=== PATIENT | female | born 1995 | race Caucasian/White ===

== ENCOUNTER → 2018-08-22 | Outpatient (CLI) | payer BC, OTHER ==
--- NOTE | 2018-08-23 08:11 | US ---
EXAM DESCRIPTION: OB ,Late (15-40wks): Ultrasound. CLINICAL HISTORY: 23 years Female Gestational size and dates correlation. Routine care. unknown. . By LMP 04/03/2018 , EGA today is 20 weeks, 1 days, with VANNESA of 01/08/2019. COMPARISON: Previous OB ultrasound none available. . TECHNIQUE: Trans-pelvic scanning through the urine-filled bladder; purcell-scale, color Doppler, and M-mode sonography FINDINGS: Single, intrauterine gestation, cephalic position. Amniotic fluid volume normal. IESHA : 15.4 cm.. Maternal cervix internal os visualized.. Placenta anterior with no evidence of previa or abruptio. heart rate by M-mode sonography 138 beats/min. limb activity observed. structural survey: The following structures were visualized and grossly normal - urinary bladder, stomach, and bilateral kidneys; cord insertion, 3-vessel cord and 4 extremities; spine longitudinal, 4-chamber heart; bilateral choroid plexus, lateral ventricles, cerebellum, and cisterna magna. Nose/lips were not seen bilateral ventricular outflow tracts and diaphragm were not seen. Ultrasound parameter measurements for estimating gestational age: BPD 50.5 mm 21/2 (weeks/days). Head circumference 184.7 mm 20/6. Abdominal circumference 154.9 mm 20/5. Femur length 33.8 mm 20/4. Ultrasound parameter ratios and cephalic index are within the normal range. Mean estimated gestational age is 20 weeks 6 days, corresponding to VANNESA of 01/03/2019. Estimated weight based on these measurements is 370+/- 56 g. 13 ounces 76th percentile LMP. Bilateral adnexa not well seen; ovaries not seen. IMPRESSION: 1. Single, living, intrauterine gestation in cephalic presentation. Amniotic fluid volume normal, and maternal cervix internal os was visualized. Placenta anterior with no evidence of previa. Structural survey grossly normal . cardiac ventricular outflow tracts nose and lips, and diaphragm were not seen. 2. Estimated gestational age by today's ultrasound examination is 20 weeks 6 days with VANNESA 01/03/2019. This is 5 days older than the estimated gestation age by menstrual dates. 3. Estimated weight is 370 g. 13 ounces. 75th Percentile LMP . Electronically signed by: Chirs Gregg MD 08/23/2018 8:08 AM CDT
== END ==
LOC: US 09:34
PROVIDERS: ATTEND Family Medicine
DX: Z34.81 Encounter for supervision of other normal pregnancy, first trimester (principal); Z3A.20 20 weeks gestation of pregnancy

== ENCOUNTER 2020-05-23 16:29 | Emergency (ER) | payer BC ==
--- NOTE | 2020-05-23 16:39 | ED.PDOC ---
History of Present Illness - General Stated Complaint: Vomiting in Time Seen by Provider: 05/23/20 16:39 - History of Present Illness Initial Comments: A0, EGA 7 weeks. Patient complains of incessant vomiting for the last 3 days, too numerous to count in the last 24 hours. No diarrhea. No vaginal bleeding. No fever chills, upper respiratory symptoms or coughing. Patient has had hyperemesis gravidarum with her 2 prior pregnancies. No dysuria or frequency, decreased urine output. Timing/Duration: other - 3 days Severity: severe Improving Factors: nothing Worsening Factors: nothing Associated Symptoms: denies symptoms Allergies/Adverse Reactions: Allergies NO KNOWN ALLERGY Allergy (Verified 08/13/15 18:52) Home Medications: Ambulatory Orders Doxylamine Succinate (Sleep) [Unisom] 25 mg PO PRN 08/13/15 Ondansetron [Zofran Odt] 4 mg PO Q6HR PRN #10 tab 08/13/15 Nitrofurantoin Monohydrate Mac [Macrobid] 100 mg PO BID #14 cap 09/18/15 Ondansetron Tab [Zofran Tab] 4 mg PO BID PRN #8 tab 09/18/15 Ondansetron Odt [Zofran ODT] 4 mg PO Q6H PRN 5 Days #20 tab 05/23/20 Review of Systems - Review of Systems Constitutional: States: no symptoms reported EENTM: States: no symptoms reported Respiratory: States: no symptoms reported Cardiology: States: no symptoms reported Gastrointestinal/Abdominal: States: see HPI Genitourinary: States: see HPI Musculoskeletal: States: no symptoms reported Skin: States: no symptoms reported Neurological: States: no symptoms reported Endocrine: States: no symptoms reported Hematologic/Lymphatic: States: no symptoms reported Past Medical History (General) - Patient Medical History Hx Seizures: No Hx Stroke: No Hx Dementia: No Hx Asthma: No Hx of COPD: No Hx Cardiac Disorders: No Hx Congestive Heart Failure: No Hx Pacemaker: No Hx Hypertension: No Hx Thyroid Disease: No Hx Diabetes: No Hx Gastroesophageal Reflux: No Hx Renal Disease: No Hx Cancer: No Hx of HIV: No Hx Hepatitis C: No Hx MRSA: No - Vaccination History Hx Tetanus, Diphtheria Vaccination: No Hx Influenza Vaccination: No Hx Pneumococcal Vaccination: No - Social History Hx Tobacco Use: No Hx Chewing Tobacco Use: No Hx Alcohol Use: No Hx Substance Use: No Hx Substance Use Treatment: No Hx Depression: No Hx Physical Abuse: No Hx Emotional Abuse: No Hx Suspected Abuse: No - Female History Patient : Yes Expected Date of Delivery:: 03/26/16 Hx Gestational Age: 8 Family Medical History - Family History Mother Family History: No Known Physical Exam - Physical Exam General Appearance: Alert, Other - Vomiting Eye Exam: bilateral normal Ears, Nose, Throat: normal ENT inspection, normal pharynx, other - Moist mucous membranes Neck: non-tender, full range of motion, supple Respiratory: lungs clear Cardiovascular/Chest: normal peripheral pulses, regular rate, rhythm Gastrointestinal/Abdominal: normal bowel sounds, non tender, soft Back Exam: normal inspection, no CVA tenderness Extremity: non-tender, no pedal edema, no calf tenderness Neurologic: ground support agent II-XII nml as tested, no motor/sensory deficits, normal mood/affect, oriented x 3 Skin Exam: normal color Lymphatic: no adenopathy Progress - Progress Progress: 05/23/20 16:47 IV normal saline 1000 mL with 25 mg Phenergan added, Zofran 4 mg IV. 05/23/20 17:58 Now tolerating oral fluids well. Nausea has subsided. Patient amenable to discharge. - Results/Orders Results/Orders: 05/23/20 16:42 URINALYSIS Stat Laboratory Results - last 24 hr 05/23/20 05/23/20 16:42 16:42 WBC 10.2 RBC 4.90 Hgb 14.5 Hct 41.2 MCV 84.0 MCH 29.5 MCHC 35.1 RDW 12.4 Plt Count 260 MPV 7.3 L Absolute Neuts (auto) 7.60 H Absolute Lymphs (auto) 2.00 Absolute Monos (auto) 0.60 Absolute Eos (auto) 0.00 Absolute Basos (auto) 0.10 Neutrophils % 74.4 Lymphocytes % 19.3 L Monocytes % 5.6 Eosinophils % 0.1 L Basophils % 0.6 Sodium 138 Potassium 3.9 Chloride 105 Carbon Dioxide 20 L Anion Gap 16.9 BUN 9 Creatinine 0.66 BUN/Creatinine Ratio 13.6 Random Glucose 92 Serum Osmolality 274.0 L Calcium 9.3 Total Bilirubin 1.0 AST 19 ALT 15 Alkaline Phosphatase 45 Serum Total Protein 8.6 H Albumin 4.8 Globulin 3.8 H Albumin/Globulin Ratio 1.3 Vital Signs - 24 hr 05/23/20 16:40 Temperature 97.9 F Pulse Rate [ 88 left brachial] Respiratory 16 Rate Blood Pressure 131/89 [left brachial] O2 Sat by Pulse 100 Oximetry Departure - Departure Clinical Impression: Vomiting during Time of Disposition: 17:58 Disposition: Discharge to Home or Self Care Condition: Good Instructions: Nausea and Vomiting, Adult (DC) Diet: other - Clear liquid diet initially, gradually advancing her diet as tolerated. Activity: other Referrals: Vicky Rios DO [Primary Care Provider] - 1-2 Weeks Prescriptions: Ondansetron Odt [Zofran ODT] 4 mg PO Q6H PRN 5 Days #20 tab PRN Reason: Vomiting Home Medications: Ambulatory Orders Doxylamine Succinate (Sleep) [Unisom] 25 mg PO PRN 08/13/15 Ondansetron [Zofran Odt] 4 mg PO Q6HR PRN #10 tab 08/13/15 Nitrofurantoin Monohydrate Mac [Macrobid] 100 mg PO BID #14 cap 09/18/15 Ondansetron Tab [Zofran Tab] 4 mg PO BID PRN #8 tab 09/18/15 Ondansetron Odt [Zofran ODT] 4 mg PO Q6H PRN 5 Days #20 tab 05/23/20 Additional Instructions: If the Zofran oral dissolving tablet do not work you have a handwritten prescription for Phenergan suppositories to be used for uncontrollable vomiting. If you cannot control your vomiting return to the emergency department. Contact your lithographic etcher tomorrow about your symptoms.
[2020-05-23] MEDS ORDERED: ONDANSETRON INJ 4 MG/2 ML VIAL IV ONE (16:42)
[2020-05-23] MEDS ORDERED: PROMETHAZINE HCL IVPB ONE (16:43)
[2020-05-23] MEDS ORDERED: SODIUM CHLORIDE 0.9% IVPB ONE (16:43)
[2020-05-23] MEDS ORDERED: SODIUM CHLORIDE 0.9% 1000ML 1,000 ML IVS ONE (16:43)
[2020-05-23] MEDS ORDERED: PROMETHAZINE HCL INJ 25 MG/ML VIAL ONE (16:45)
[2020-05-23] MEDS ORDERED: SODIUM CHL 0.9% 50ML MIN-BAG+ 50 ML IVPB ONE (16:46)
[2020-05-23] MEDS ORDERED: PROMETHAZINE SUPP 25 MG SUP PR PRN (18:00)
[2020-05-23] MEDS ORDERED: ONDANSETRON ODT (ER DISP) 8 MG TAB PO ONE ×2 (18:07→18:55)
[2020-05-23 18:58] VITALS: BP 116/80; TEMP 98; O2SAT 99
== END 2020-05-23 18:25 | disposition home or self-care (01) ==
LOC: ER 16:29
DX: O21.9 Vomiting of pregnancy, unspecified (principal); Z3A.01 Less than 8 weeks gestation of pregnancy
CPT/HCPCS: 36415; 80053; 85025; J2405; J2550; J7030; J7050